=== PATIENT | female | born 1985 | race American Indian/Alaskan Native ===

== ENCOUNTER 2017-03-06 22:24 | Emergency (ER) | payer MEDICAID ==
[2017-03-06 23:36] LABS: Basophils % (Auto) 0.7 % (0.0-1.8); Eosinophils % (Auto) 4.3 % (0.0-4.3); Hematocrit 36.5 % (30.3-42.9); Hemoglobin 11.7 gm/dl (10.1-14.3); Mean Corpuscular HGB Conc 32 % (30-34); Mean Corpuscular Volume 78 fl (79-97); Platelet Count 251 K/mm3 (140-440); Red Blood Count 4.67 M/mm3 (3.65-5.03); White Blood Count 5.5 K/mm3 (4.5-11.0)
--- NOTE | 2017-03-06 23:36 | Emergency Department Report ---
<AL PARTIDA III - Last Filed: 03/06/17 23:36> ED Chest Pain HPI - General Chief Complaint: Chest Pain Stated Complaint: CHEST PAIN Time Seen by Provider: 03/06/17 23:36 Source: patient Mode of arrival: Ambulatory Limitations: No Limitations - History of Present Illness Severity scale (0 -10): 7 - Related Data Previous Rx's Medication Instructions Recorded Last Taken Type Cyclobenzaprine [Flexeril] 10 mg PO TID PRN 10 Days #30 tablet 03/07/17 Unknown Rx Allergies Allergy/AdvReac Type Severity Reaction Status Date / Time banana Allergy Hives Verified 03/12/14 19:33 ED Review of Systems ROS: Stated complaint: CHEST PAIN Other details as noted in HPI ED Past Medical Hx - Past Medical History Hx Hypertension: No Hx Congestive Heart Failure: No Hx Diabetes: No Hx Deep Vein Thrombosis: No Hx GERD: Yes Hx Liver Disease: No Hx Renal Disease: No Hx Sickle Cell Disease: No Hx Seizures: Yes (age 6 fever related none since) Hx Asthma: No Hx COPD: No Hx HIV: No Additional medical history: FEBRILE SEIZURE - Surgical History Past Surgical History?: Yes Additional Surgical History: right eye surgery - Social History Smoking Status: Never Smoker Substance Use Type: None - Medications Home Medications: Home Medications Medication Instructions Recorded Confirmed Last Taken Type Cyclobenzaprine [Flexeril] 10 mg PO TID PRN 10 Days #30 tablet 03/07/17 Unknown Rx ED Physical Exam - General Limitations: No Limitations ED Course Vital Signs 03/06/17 22:30 Temperature 98.1 F Pulse Rate 60 Respiratory 16 Rate Blood Pressure 121/82 O2 Sat by Pulse 100 Oximetry ED Medical Decision Making - Lab Data Result diagrams: 03/06/17 22:59 Critical care attestation.: If time is entered above; I have spent that time in minutes in the direct care of this critically ill patient, excluding procedure time. ED Disposition Clinical Impression: Chest pain, atypical, Costochondritis Disposition: DC- TO HOME OR SELFCARE Condition: Stable Instructions: Chest Pain (ED), Costochondritis (ED) Prescriptions: Cyclobenzaprine [Flexeril] 10 mg PO TID PRN 10 Days #30 tablet PRN Reason: Muscle Spasm Referrals: PRIMARY CARE, [Primary Care Provider] - 3-5 Days (Dr. Wood[place] at [facility] [place] <MATTHEW CHAPMAN - Last Filed: 03/07/17 03:26> ED Chest Pain HPI - General Source: patient Mode of arrival: Ambulatory Limitations: No Limitations - History of Present Illness Initial Comments: Patient with chest pain that has been recurrent for 1-2 weeks but worse for 2 days. She has not had a cough but has no other medical problems. She denies having asthma. She takes no meds. -: Gradual, week(s) (2) Onset: during rest Pain Location: substernal Pain Radiation: none Severity: moderate Severity scale (0 -10): 7 Quality: tightness, sharp Consistency: constant, intermittent (worse with palpation.) Improves With: nothing Worsens With: nothing Treatments Prior to Arrival: none Heart Score - HEART Score History: Slightly suspicious EKG: Non-specific Age: < 45 Risk factors: No known risk factors Troponin: < normal limit HEART Score: 1 ED Review of Systems Constitutional: denies: chills, fever Eyes: denies: eye pain, eye discharge, vision change ENT: denies: ear pain, throat pain Respiratory: denies: cough, shortness of breath, wheezing Cardiovascular: chest pain. denies: palpitations Endocrine: no symptoms reported Gastrointestinal: denies: abdominal pain, nausea, diarrhea Genitourinary: denies: urgency, dysuria, discharge Musculoskeletal: denies: back pain, joint swelling, arthralgia Skin: denies: rash, lesions Neurological: denies: headache, weakness, paresthesias Psychiatric: denies: anxiety, depression Hematological/Lymphatic: denies: easy bleeding, easy bruising ED Physical Exam - General Limitations: No Limitations General appearance: alert, in no apparent distress - Head Head exam: Present: atraumatic, normocephalic - Eye Eye exam: Present: normal appearance - ENT ENT exam: Present: mucous membranes moist - Neck Neck exam: Present: normal inspection - Respiratory Respiratory exam: Present: normal lung sounds bilaterally. Absent: respiratory distress - Cardiovascular Cardiovascular Exam: Present: regular rate, normal rhythm, other (Patient with pain on compression of sternum.). Absent: systolic murmur, diastolic murmur, rubs, gallop - GI/Abdominal GI/Abdominal exam: Present: soft, normal bowel sounds - Extremities Exam Extremities exam: Present: normal inspection - Back Exam Back exam: Present: normal inspection - Neurological Exam Neurological exam: Present: alert, oriented X3 - Psychiatric Psychiatric exam: Present: normal affect, normal mood - Skin Skin exam: Present: warm, dry, intact, normal color. Absent: rash ED Medical Decision Making - Lab Data Result diagrams: 03/06/17 22:59 03/06/17 22:59 Labs were unremarkable. - EKG Data -: EKG Interpreted by Me EKG shows normal: sinus rhythm, axis, intervals, QRS complexes, ST-T waves Rate: normal - EKG Data Interpretation: normal EKG - Medical Decision Making Patient low risk for cardiac disease. Pain is intermittent and on exam is most consistent with costochondritis. Will do flexeril to see if helps. She will need to follow up with her PCP at [facility] [place]. Woodson. ED Disposition Is pt being admited?: No Does the pt Need Aspirin: No Time of Disposition: 03:25
[2017-03-06 23:37] LABS: Mean Corpuscular Hemoglobin 25 pg (28-32)
[2017-03-06 23:43] LABS: Anion Gap 18 mmol/L; BUN/Creatinine Ratio 6; Blood Urea Nitrogen 5 mg/dL (7-17); Calcium 8.5 mg/dL (8.4-10.2); Carbon Dioxide 25 mmol/L (22-30); Chloride 102.1 mmol/L (98-107); Glucose 103 mg/dL (65-100); Potassium 4.2 mmol/L (3.6-5.0); Sodium 141 mmol/L (137-145)
[2017-03-07] MEDS ORDERED: MILK OF MAGNESIA PO ONE (00:35)
[2017-03-07] MEDS ORDERED: LIDOCAINE VISCOUS 2% PO ONE (00:35)
[2017-03-07 03:42] VITALS: BP 122/68
== END 2017-03-07 03:42 | disposition home or self-care (01) ==
LOC: ED 22:24
DX: M94.0 Chondrocostal junction syndrome [Tietze] (principal); R07.89 Other chest pain
CPT/HCPCS: 36415; 80048; 84484; 85025; 93005; 93010

== ENCOUNTER 2019-09-04 20:00 | Inpatient (IN) | payer MEDICARE ==
--- NOTE | 2019-09-04 20:18 | Emergency Department Report ---
HPI - General Time Seen by Provider: 09/04/19 20:01 - HPI HPI: This is a 34-year-old -Malaysian female presents to the emergency department via EMS from home with what appears to be an initial call for chest pain but then ultimately came in through the emergency department as a code stroke. EMS says that the patient was initially talking and unresponsive but became increasingly less responsive during transport. The patient presents into the emergency department with her eyes open spontaneously but she is nonverbal. She appears to follow some commands and withdraws from painful stimuli. The patient has been to this facility previously and she appears to have a past medical history of seizures. There was no seizure-like activity witnessed by EMS. She did not receive anything for symptoms prior to presentation. ED Past Medical Hx - Past Medical History Hx Hypertension: No Hx Congestive Heart Failure: No Hx Diabetes: No Hx Deep Vein Thrombosis: No Hx GERD: Yes Hx Liver Disease: No Hx Renal Disease: No Hx Sickle Cell Disease: No Hx Seizures: Yes (age 6 fever related none since) Hx Asthma: No Hx COPD: No Hx HIV: No Additional medical history: FEBRILE SEIZURE - Surgical History Additional Surgical History: right eye surgery - Social History Smoking Status: Never Smoker Substance Use Type: None - Medications Home Medications: Home Medications Medication Instructions Recorded Confirmed Last Taken Type Cyclobenzaprine [Flexeril] 10 mg PO TID PRN 10 Days #30 tablet 03/07/17 Unknown Rx ED Review of Systems ROS: Stated complaint: CODE STROKE Other details as noted in HPI Comment: Unobtainable due to pts medical conditions Cardiovascular: chest pain Neurological: weakness, confusion Physical Exam - Physical Exam Physical Exam: GENERAL: The patient is well-developed well-nourished. HENT: Normocephalic. Atraumatic. Patient has moist mucous membranes. EYES: Extraocular motions are intact. Pupils equal reactive to light bilaterally. No gaze preference. NECK: Supple. Trachea is midline. CHEST/LUNGS: Clear to auscultation. There is no respiratory distress noted. HEART/CARDIOVASCULAR: Regular. There is no tachycardia. There is no murmur. ABDOMEN: Abdomen is soft, nontender. Patient has normal bowel sounds. There is no abdominal distention. SKIN: Skin is warm and dry. NEURO: Patient is awake but is nonverbal at this time. Withdraws from painful stimuli. There is no upper extremity pronator drift or weakness. There is bilateral lower extremity drift. Cranial nerves II through XII appear intact. MUSCULOSKELETAL: There is no tenderness or deformity. There is no evidence of acute injury. ED Course - Consultations Consultation #1: 09/04/19 21:06 The patient was seen by the telemedicine neurologist, Dr. Valdes, immediately upon the patient's return from CT scan of the head. We discussed the patient's presentation and examination and we agree that there is a very atypical presentation. As Dr Valdes said in his consultation, the patient displays full muscle strength to the bilateral upper extremities and decreased strength to the bilateral lower extremities. At times she is responsive and appropriate, and then the next minute the patient will be either unresponsive or uncooperative. For this reason the patient does not appear to be a TPA candidate and the neurologist recommends admission for further work-up. ED Medical Decision Making - Lab Data Result diagrams: 09/04/19 20:09 09/04/19 20:09 - EKG Data -: EKG Interpreted by [facility] EKG shows normal: sinus rhythm, axis (Left axis deviation), intervals, QRS complexes, ST-T waves (Nonspecific T waves to the anterior lateral leads) Rate: tachycardia (105 bpm) - EKG Data When compared to previous EKG there are: no significant change Interpretation: unchanged when compared t (03/06/17) - Radiology Data Radiology results: report reviewed NONENHANCED CT SCAN OF THE BRAIN: INDICATION: Stroke symptoms. TECHNIQUE: Routine CT head without contrast. Sagittal and coronal reformatted images were obtained. All CT scans at this location are performed using CT dose reduction for ALARA by means of automated exposure control. COMPARISON: None. FINDINGS: BRAIN / INTRACRANIAL CONTENTS: Hemorrhage:No intracranial hemorrhage; no subarachnoid hemorrhage Stroke mimics: No subdural or epidural hematoma or space taking lesion Acute/subacute territorial infarction: Early-white matter interface: No blurring; normal Insular cortex: Normal Basal ganglia: Normal Wedge shaped parenchymal low density area: Not present Cortical sulci: Not effaced Lacunar infarctions: No acute lacunar infarctions Vasculopathy: Dense middle cerebral artery sign: Not present Internal carotid artery terminus: Normal Basilar artery:Normal Middle cerebral artery branches in the sylvian fissure (Dot sign): Normal Calcified embolus: Not present ASPECT score: Not applicable Chronic lesions:None Craniocervical junction:No significant abnorm ality Orbits:No significant abnormality Paranasal sinuses/mastoids:No significant abnormality Additional findings: None IMPRESSION: No hemorrhage or other stroke mimics No acute parenchymal lesion in the brain CTA HEAD WITH CONTRAST HISTORY: Stroke COMPARISON: None. TECHNIQUE: Routine non- contrast CT Head, CTA of the head and post-contrast CT Head are performed. 3- D/MIP reformats postprocessed. All CT scans at this location are performed using CT dose reduction for ALARA by means of automated exposure control CONTRAST: 100 ml of Omnipaque 350 FINDINGS: CTA Head: Intracranial vertebral arteries: No significant abnormality. Basilar artery: No significant abnormality. Posterior cerebral arteries: No significant abnormality. Intracranial internal carotid arteries: No significant abnormality. Anterior cerebral arteries: No significant abnormality. Middle cerebral arteries: No significant abnormality. Dural venous sinuses:Not optimally opacified. No significant abnormality. Additional findings: None. IMPRESSION: 1. No significant abnormality. CTA NECK WITH CONTRAST HISTORY: Stroke COMPARISON: None. TECHNIQUE: Routine CTA of the neck was performed. 3-D/MIP reformats were postprocessed. Percentage stenosis is determined by direct quantitative measurements of diseased internal carotid artery diameter compared with normal distal internal carotid artery reference segments or by criteria similar to NASCET where applicable.All CT scans at this location are performed using CT dose reduction for ALARA by means of automated exposure control CONTRAST: 100 ml of Omnipaque 350 FINDINGS: Aortic arch: No significant abnormality. Cervical vertebral arteries: No significant abnormality. Common carotid arteries: No significant abnormality. Carotid bifurcations: Normal Cervical internal carotid arteries: No significant abnorm ality. Additional findings: None. IMPRESSION: 1. No significant abnormality. - Medical Decision Making This patient initially called EMS for acute chest pain but that had some change in her mental status in route and became nonverbal. Upon presentation to the emergency department the patient has an atypical presentation. She is awake but nonverbal. She has full range of motion and muscle strength to the bilateral upper extremities but appears to have weakness and a drift to the bilateral lower extremities. At some point the patient appears to be following commands and then other times she is not. She does withdraw from painful stimuli. The patient had a stat CT scan of the head without contrast that did not show any acute process. She was seen immediately afterwards by the telemedicine neurologist who gave her an NIH stroke scale of 15 but also agrees that she has a very atypical presentation for a stroke and has no CVA risk factors. For this reason they did not feel that the patient should get TPA but the patient should be admitted for further evaluation and work-up. Her labs have been unremarkable including CBC, metabolic panel, ammonia, troponin, TSH, blood alcohol level, urinalysis and UDS except for marijuana. Patient had a CT angiography of the head and neck that also did not show any occlusion, stenosis, or any other acute process. Vital signs been stable throughout her ED course. The patient will be admitted to the hospital for further evaluation and treatment and was accepted for admission by the hospitalist, Dr. Aldana. Critical Care Time: No Critical care attestation.: If time is entered above; I have spent that time in minutes in the direct care of this critically ill patient, excluding procedure time. ED Disposition Clinical Impression: Acute chest pain, Stroke-like symptoms Altered mental status Qualifiers: Altered mental status type: unspecified Qualified Code(s): R41.82 - Altered mental status, unspecified Disposition: -09 OP ADMIT IP TO THIS HOSP Is pt being admited?: Yes Condition: Serious Time of Disposition: 00:28
[2019-09-04 20:21] LABS: Basophils # (Auto) 0.1 K/mm3 (0.0-0.1); Eosinophils # (Auto) 0.1 K/mm3 (0.0-0.4); Eosinophils % (Auto) 1.2 % (0.0-4.3); Hematocrit 33.8 % (30.3-42.9); Lymphocytes # (Auto) 2.1 K/mm3 (1.2-5.4); Lymphocytes % (Auto) 38.1 % (13.4-35.0); Mean Corpuscular HGB Conc 35 % (30-34); Mean Corpuscular Volume 85 fl (79-97); Monocytes # (Auto) 0.5 K/mm3 (0.0-0.8); Monocytes % (Auto) 9.1 % (0.0-7.3); Platelet Count 287 K/mm3 (140-440); Red Blood Count 4.01 M/mm3 (3.65-5.03); Red Cell Distribution Width 13.4 % (13.2-15.2)
--- NOTE | 2019-09-04 20:29 | Cat Scan Report ---
NONENHANCED CT SCAN OF THE BRAIN: INDICATION: Stroke symptoms. TECHNIQUE: Routine CT head without contrast. Sagittal and coronal reformatted images were obtained. A ll CT scans at this location are performed using CT dose reduction for ALARA by means of automated ex posure control. COMPARISON: None. FINDINGS: BRAIN / INTRACRANIAL CONTENTS: Hemorrhage:No intracranial hemorrhage; no subarachnoid hemorrhage Stroke mimics: No subdural or epidural hematoma or space taking lesion Acute/subacute territorial infarction: Early-white matter interface: No blurring; normal Insular cortex: Normal Basal ganglia: Normal Wedge shaped parenchymal low density area: Not present Cortical sulci: Not effaced Lacunar infarctions: No acute lacunar infarctions Vasculopathy: Dense middle cerebral artery sign: Not present Internal carotid artery terminus: Normal Basilar artery:Normal Middle cerebral artery branches in the sylvian fissure (Dot sign): Normal Calcified embolus: Not present ASPECT score: Not applicable Chronic lesions:None Craniocervical junction:No significant abnormality Orbits:No significant abnormality Paranasal sinuses/mastoids:No significant abnormality Additional findings: None IMPRESSION: No hemorrhage or other stroke mimics No acute parenchymal lesion in the brain Signer Name: Doreen Allen MD Signed: 09/04/2019 8:24 PM Workstation Name: [id number]
[2019-09-04 20:30] LABS: INR 1.01 (0.87-1.13)
[2019-09-04 20:31] LABS: Partial Thromboplastin Time 25.7 Sec. (24.2-36.6); Thrombin Time 15.1 Sec. (15.1-19.6)
--- NOTE | 2019-09-04 20:31 | Consultation ---
Medications and Allergies Allergies Allergy/AdvReac Type Severity Reaction Status Date / Time banana Allergy Hives Verified 03/12/14 19:33 Home Medications Medication Instructions Recorded Confirmed Last Taken Type Cyclobenzaprine [Flexeril] 10 mg PO TID PRN 10 Days #30 tablet 03/07/17 Unknown Rx Physical Examination - Vital Signs Vital Signs: Vital Signs Temp Pulse Resp BP Pulse Ox 97.5 F L 94 H 39 H 139/78 100 09/04/19 20:01 09/04/19 20:01 09/04/19 20:01 09/04/19 20:01 09/04/19 20:01 Results - Laboratory Findings CBC and BMP: 09/04/19 20:09 Abnormal Lab Findings: Abnormal Labs 09/04/19 20:09 MCHC 35 H Lymph % (Auto) 38.1 H [place] % (Auto) 9.1 H Assessment and Plan [facility] [employer] [facility] Date of Service: 09/04/2019 20:02:56 Impression: Rule Out Acute Ischemic Stroke Comments/Sign-Out: Patient presented with atypical presentation with minimally responsive but at times follows commands in regards to chest pain. Non verbal but nods at times appropriately. HCT showed no acute process. Patient presentation is atypical of a neurovascular event. With lack of collateral and inorganic presentation no tpA was offered. Metrics: Last Known Well: Unknown [employer] Notification Time: 09/04/2019 20:02:22 Arrival Time: 09/04/2019 20:00:00 Stamp Time: 09/04/2019 20:02:56 Time First Login Attempt: 09/04/2019 20:07:32 Video Start Time: 09/04/2019 20:07:32 Symptoms: AMS NIHSS Start Assessment Time: 09/04/2019 20:08:00 Patient is not a candidate for tPA. Patient was not deemed candidate for tPA thrombolytics because of Last Well Known Above 4.5 Hours. Video End Time: 09/04/2019 20:24:44 CT head showed no acute hemorrhage or acute core infarct. Clinical Presentation is not Suggestive of Large Vessel Occlusive Disease ED Physician notified of diagnostic impression and management plan on 09/04/2019 20:24:42 Our recommendations are outlined below. Recommendations: Activate Stroke Protocol Admission/Order Set Stroke/Telemetry Floor Neuro Checks Bedside Swallow Eval DVT Prophylaxis IV Fluids, Normal Saline Head of Bed 30 Degrees Euglycemia and Avoid Hyperthermia (PRN Acetaminophen) Antiplatelet Therapy Recommended Routine Consultation with Inhouse Neurology for Follow up Care Sign Out: Discussed with Emergency Department Provider History of Present Illness: Patient is a 34 year old Female. Patient was brought by EMS for symptoms of AMS Patient with unknown history presented with chest pain and AMS. On arrival by EMS she was found minimally responsive. Not interacting to staff. She was given narcan but no change in status. Examination: 1A: Level of Consciousness - Alert; keenly responsive + 0 1B: Ask Month and Age - Could Not Answer Either Question Correctly + 2 1C: Blink Eyes & Squeeze Hands - Performs 0 Tasks + 2 2: Test Horizontal Extraocular Movements - Normal + 0 3: Test Visual Mancera - No Visual Loss + 0 4: Test Facial Palsy (Use Grimace if Obtunded) - Normal symmetry + 0 5A: Test Left Arm Motor Drift - No Drift for 10 Seconds + 0 5B: Test Right Arm Motor Drift - No Drift for 10 Seconds + 0 6A: Test Left Leg Motor Drift - No Effort Against Shasta + 3 6B: Test Right Leg Motor Drift - No Effort Against Shasta + 3 7: Test Limb Ataxia (FNF/Heel-Murray) - No Ataxia + 0 8: Test Sensation - Normal; No sensory loss + 0 9: Test Language/Aphasia - Mute/Global Aphasia: No Usable Speech/Auditory Comprehension + 3 10: Test Dysarthria - Mute/Anarthric + 2 11: Test Extinction/Inattention - No abnormality + 0 NIHSS Score: 15 [facility] [employer] Case [id number]
[2019-09-04] MEDS ORDERED: ASPIRIN 81 MG TAB CHEW PO ONE (20:42)
[2019-09-04 20:43] LABS: Alanine Aminotransferase 8 units/L (7-56); Albumin 3.7 g/dL (3.9-5); BUN/Creatinine Ratio 10; Blood Urea Nitrogen 8 mg/dL (7-17); Calcium 8.7 mg/dL (8.4-10.2); Creatine Kinase MB < 1.0 ng/mL (0.0-4.0); Hemolysis Index 20
[2019-09-04 21:38] LABS: Bacteria,Urine 1+ /HPF (Negative); Bilirubin,Urine NEG (Negative); Blood,Urine NEG (Negative); Color,Urine Yellow (Yellow); Mucus,Urine FEW /HPF
[2019-09-04 21:45] LABS: Amphetamine Screen,Urine PRESUMPTIVE NEGATIVE; Benzodiazepines Screen,Urine PRESUMPTIVE NEGATIVE; Cocaine Screen,Urine PRESUMPTIVE NEGATIVE; Methadone Screen,Urine PRESUMPTIVE NEGATIVE; Opiate Screen,Urine PRESUMPTIVE NEGATIVE
[2019-09-04 22:06] LABS: Cannabinoid Screen,Urine PRESUMPTIVE POSITIVE
[2019-09-04] MEDS ORDERED: KETOROLAC 30 MG/1 ML INJ IV ONE (22:53)
--- NOTE | 2019-09-04 23:47 | Cat Scan Report ---
CTA NECK WITH CONTRAST HISTORY: Stroke COMPARISON: None. TECHNIQUE: Routine CTA of the neck was performed. 3-D/MIP reformats were postprocessed. Percentage s tenosis is determined by direct quantitative measurements of diseased internal carotid artery diamete r compared with normal distal internal carotid artery reference segments or by criteria similar to NA SCET where applicable.All CT scans at this location are performed using CT dose reduction for ALARA b y means of automated exposure control CONTRAST: 100 ml of Omnipaque 350 FINDINGS: Aortic arch: No significant abnormality. Cervical vertebral arteries: No significant abnormality. Common carotid arteries: No significant abnormality. Carotid bifurcations: Normal Cervical internal carotid arteries: No significant abnormality. Additional findings: None. IMPRESSION: 1. No significant abnormality. Signer Name: Doreen Allen MD Signed: 09/04/2019 11:42 PM Workstation Name: [id number]
--- NOTE | 2019-09-04 23:50 | Cat Scan Report ---
CTA HEAD WITH CONTRAST HISTORY: Stroke COMPARISON: None. TECHNIQUE: Routine non-contrast CT Head, CTA of the head and post-contrast CT Head are performed. 3-D /MIP reformats postprocessed. All CT scans at this location are performed using CT dose reduction for ALARA by means of automated exposure control CONTRAST: 100 ml of Omnipaque 350 FINDINGS: CTA Head: Intracranial vertebral arteries: No significant abnormality. Basilar artery: No significant abnormality. Posterior cerebral arteries: No significant abnormality. Intracranial internal carotid arteries: No significant abnormality. Anterior cerebral arteries: No significant abnormality. Middle cerebral arteries: No significant abnormality. Dural venous sinuses:Not optimally opacified. No significant abnormality. Additional findings: None. IMPRESSION: 1. No significant abnormality. Signer Name: Doreen Allen MD Signed: 09/04/2019 11:46 PM Workstation Name: [id number]
[2019-09-05] MEDS ORDERED: NITROGLYCERIN 0.4 MG TAB SUBL SL PRN (00:35)
[2019-09-05] MEDS ORDERED: ACETAMINOPHEN 325 MG TAB PO PRN ×2 (00:35)
[2019-09-05] MEDS ORDERED: PROMETHAZINE 25 MG RECT SUPP PR PRN (00:35)
[2019-09-05] MEDS ORDERED: MORPHINE 2 MG/1 ML INJ IV PRN (00:35)
[2019-09-05] MEDS ORDERED: MAGNESIUM HYDROXIDE (MOM) ORAL LIQD UDC PO PRN ×2 (00:35)
[2019-09-05] MEDS ORDERED: METOCLOPRAMIDE 10 MG TAB PO PRN (00:35)
[2019-09-05] MEDS ORDERED: ONDANSETRON 4 MG/2 ML INJ IV PRN ×2 (00:35)
--- NOTE | 2019-09-05 00:55 | History and Physical Report ---
History of Present Illness Date of examination: 09/05/19 Date of admission: 09/05/2019 Chief complaint: Chest Pain Altered mental status History of present illness: 34-year-old female brought into the emergency room by EMS because of decreased responsiveness at home today. Initial call was that patient was having a chest pain but later became less responsive and upon arrival in the emergency room she was said to be nonverbal but appeared to follow commands and also withdrew from painful stimuli. She is known to have previous history of seizures but no seizure activities were noticed today. Most of the history was gotten from the emergency room physician as patient could not give any good history. Evaluation in the emergency room including CT of the head EKG and labs were unremarkable. She was also evaluated by the teleneurologist recommendation was to have patient worked up for possible CVA. Past History Past Medical History: seizures Past Surgical History: No surgical history Social history: no significant social history Medications and Allergies Allergies Allergy/AdvReac Type Severity Reaction Status Date / Time banana Allergy Hives Verified 03/12/14 19:33 pineapple Allergy Unknown Verified 09/04/19 23:01 turkey Allergy Unknown Verified 09/04/19 23:01 Home Medications Medication Instructions Recorded Confirmed Last Taken Type Ibuprofen [Motrin 800 MG tab] 800 mg PO TID 09/05/19 09/05/19 Unknown History Meloxicam [Mobic] 15 mg PO QDAY 09/05/19 09/05/19 Unknown History Montelukast Sodium 5 mg PO QHS 09/05/19 09/05/19 Unknown History tiZANidine 4 mg PO QDAY 09/05/19 09/05/19 Unknown History Review of Systems ROS unobtainable: due to mental status Exam - Constitutional Vitals: Temp Pulse Resp BP Pulse Ox 97.5 F L 72 13 122/72 94 09/04/19 20:01 09/05/19 00:00 09/05/19 00:00 09/05/19 00:00 09/05/19 00:00 General appearance: Present: no acute distress, well-nourished - EENT Eyes: Present: PERRL, EOM intact. Absent: scleral icterus ENT: hearing intact, clear oral mucosa, dentition normal - Neck Neck: Present: supple, normal ROM - Respiratory Respiratory effort: normal Respiratory: bilateral: CTA - Cardiovascular Rhythm: regular Heart Sounds: Present: S1 & S2. Absent: gallop, systolic murmur, diastolic murmur, rub - Extremities Extremities: no ischemia, pulses intact, pulses symmetrical, No edema, Full ROM Peripheral Pulses: within normal limits - Abdominal General gastrointestinal: Present: soft, non-tender, non-distended, normal bowel sounds - Integumentary Integumentary: Present: clear, warm, dry. Absent: jaundice, rash - Musculoskeletal Musculoskeletal: strength equal bilaterally - Psychiatric Psychiatric: cooperative - Neurologic Neurologic: CNII-XII intact, moves all extremities - Additional findings Additional findings: Unresponsive to verbal commands HEART Score - HEART Score Troponin: Troponin T < 0.010 ng/mL (0.00-0.029) 09/04/19 20:09 Results - Labs CBC & Chem 7: 09/05/19 01:05 09/05/19 01:05 Labs: Abnormal lab results 09/04/19 09/04/19 09/04/19 Range/Units 20:09 20:09 20:26 MCHC 35 H (30-34) % Lymph % (Auto) 38.1 H (13.4-35.0) % [place] % (Auto) 9.1 H (0.0-7.3) % Carbon Dioxide 20 L (22-30) mmol/L Glucose 141 H (65-100) mg/dL POC Glucose 151 H (70-105) Albumin 3.7 L (3.9-5) g/dL Assessment and Plan - Patient Problems (1) Altered mental status Current Visit: Yes Status: Acute Qualifiers: Altered mental status type: unspecified Qualified Code(s): R41.82 - Altered mental status, unspecified Plan to address problem: Etiology is unclear however patient has known history of seizures. No seizure- like activities noticed today. He has also been evaluated by the teleneurologist with a recommendation to work-up for possible CVA. Patient will be scheduled for MRI of the brain, carotid Doppler. Will monitor mental status. We will also schedule patient for EEG in view of her history of seizures. (2) Acute chest pain Current Visit: Yes Status: Acute Plan to address problem: Work-up so far has been negative. Doubt cardiac origin. Will check serial cardiac enzymes. Will monitor EKG. Patient placed on daily aspirin, sublingual nitroglycerin and IV morphine as needed for chest pain. (3) DVT prophylaxis Current Visit: Yes Status: Acute Plan to address problem: Patient placed on subcutaneous Lovenox. (4) Full code status Current Visit: Yes Status: Acute
[2019-09-05 01:44] LABS: Basophils % (Auto) 0.1 % (0.0-1.8); Eosinophils % (Auto) 0.9 % (0.0-4.3); Hemoglobin 11.3 gm/dl (10.1-14.3); Lymphocytes # (Auto) 1.3 K/mm3 (1.2-5.4); Lymphocytes % (Auto) 29.4 % (13.4-35.0); Mean Corpuscular HGB Conc 33 % (30-34); Mean Corpuscular Volume 84 fl (79-97); Monocytes # (Auto) 0.4 K/mm3 (0.0-0.8); Monocytes % (Auto) 8.2 % (0.0-7.3); Platelet Count 289 K/mm3 (140-440); Red Blood Count 4.05 M/mm3 (3.65-5.03); Red Cell Distribution Width 13.3 % (13.2-15.2)
[2019-09-05 02:02] LABS: BUN/Creatinine Ratio 9; Blood Urea Nitrogen 6 mg/dL (7-17); Calcium 8.4 mg/dL (8.4-10.2); Hemolysis Index 5
[2019-09-05] MEDS ORDERED: ASPIRIN 325 MG TAB PO SCH (10:00)
--- NOTE | 2019-09-05 10:31 | Progress Note ---
Assessment and Plan Assessment and plan: Acute encephalopathy. Etiology is unclear however patient has known history of seizures. No seizure-like activities noted prior to admission. CTA head and neck negative. History of seizures. Patient reports history of seizure associated with fever years ago. She denies seizure disorder requiring medications. Follow-up EEG. Chest pain. Likely noncardiac. Follow-up cardiac isoenzymes and EKG. Monitor on telemetry. Follow-up echocardiogram. Patient denies chest pain currently. History Interval history: No new issues overnight. Hospitalist Physical - Constitutional Vitals: Temp Pulse Resp BP Pulse Ox 98.0 F 106 H 18 102/66 100 09/05/19 08:15 09/05/19 08:15 09/05/19 08:15 09/05/19 08:15 09/05/19 08:15 General appearance: Present: no acute distress, well-nourished - EENT Eyes: Present: PERRL, EOM intact ENT: hearing intact, clear oral mucosa, dentition normal - Neck Neck: Present: supple, normal ROM - Respiratory Respiratory effort: normal Respiratory: bilateral: CTA - Cardiovascular Rhythm: regular Heart Sounds: Present: S1 & S2. Absent: gallop, rub - Extremities Extremities: no ischemia, No edema, Full ROM - Abdominal General gastrointestinal: soft, non-tender, non-distended, normal bowel sounds - Integumentary Integumentary: Present: clear, warm, dry - Neurologic Neurologic: CNII-XII intact, moves all extremities HEART Score - HEART Score Troponin: Troponin T < 0.010 ng/mL (0.00-0.029) 09/05/19 07:19 Results - Labs CBC & Chem 7: 09/05/19 01:05 09/05/19 01:05 Labs: Laboratory Last Values WBC 4.5 K/mm3 (4.5-11.0) 09/05/19 01:05 RBC 4.05 M/mm3 (3.65-5.03) 09/05/19 01:05 Hgb 11.3 gm/dl (10.1-14.3) 09/05/19 01:05 Hct 34.0 % (30.3-42.9) 09/05/19 01:05 MCV 84 fl (79-97) 09/05/19 01:05 MCH 28 pg (28-32) 09/05/19 01:05 MCHC 33 % (30-34) 09/05/19 01:05 RDW 13.3 % (13.2-15.2) 09/05/19 01:05 Plt Count 289 K/mm3 (140-440) 09/05/19 01:05 Lymph % (Auto) 29.4 % (13.4-35.0) 09/05/19 01:05 [place] % (Auto) 8.2 % (0.0-7.3) H 09/05/19 01:05 Eos % (Auto) 0.9 % (0.0-4.3) 09/05/19 01:05 Baso % (Auto) 0.1 % (0.0-1.8) 09/05/19 01:05 Lymph # 1.3 K/mm3 (1.2-5.4) 09/05/19 01:05 [place] # 0.4 K/mm3 (0.0-0.8) 09/05/19 01:05 Eos # 0.0 K/mm3 (0.0-0.4) 09/05/19 01:05 Baso # 0.0 K/mm3 (0.0-0.1) 09/05/19 01:05 Seg Neutrophils % 61.4 % (40.0-70.0) 09/05/19 01:05 Seg Neutrophils # 2.7 K/mm3 (1.8-7.7) 09/05/19 01:05 PT 13.1 Sec. (12.2-14.9) 09/04/19 20:09 INR 1.01 (0.87-1.13) 09/04/19 20:09 APTT 25.7 Sec. (24.2-36.6) 09/04/19 20:09 Thrombin Time 15.1 Sec. (15.1-19.6) 09/04/19 20:09 Sodium 138 mmol/L (137-145) 09/05/19 01:05 Potassium 4.3 mmol/L (3.6-5.0) 09/05/19 01:05 Chloride 105.5 mmol/L (98-107) 09/05/19 01:05 Carbon Dioxide 23 mmol/L (22-30) 09/05/19 01:05 Anion Gap 14 mmol/L 09/05/19 01:05 BUN 6 mg/dL (7-17) L 09/05/19 01:05 Creatinine 0.7 mg/dL (0.7-1.2) 09/05/19 01:05 Estimated GFR > 60 ml/min 09/05/19 01:05 BUN/Creatinine Ratio 9 % 09/05/19 01:05 Glucose 111 mg/dL (65-100) H 09/05/19 01:05 POC Glucose 151 (70-105) H 09/04/19 20:26 Calcium 8.4 mg/dL (8.4-10.2) 09/05/19 01:05 Total Bilirubin < 0.20 mg/dL (0.1-1.2) 09/04/19 20:09 AST 16 units/L (5-40) 09/04/19 20:09 ALT 8 units/L (7-56) 09/04/19 20:09 Alkaline Phosphatase 70 units/L (35-129) 09/04/19 20:09 Ammonia 34.0 umol/L (25-60) 09/04/19 20:09 Total Creatine Kinase 62 units/L (30-135) 09/04/19 20:09 CK-MB (CK-2) < 1.0 ng/mL (0.0-4.0) 09/04/19 20:09 CK-MB (CK-2) Rel Index 1.6 (0-4) 09/04/19 20:09 Troponin T < 0.010 ng/mL (0.00-0.029) 09/05/19 07:19 Total Protein 6.7 g/dL (6.3-8.2) 09/04/19 20:09 Albumin 3.7 g/dL (3.9-5) L 09/04/19 20:09 Albumin/Globulin Ratio 1.2 % 09/04/19 20:09 TSH 0.749 mlU/mL (0.270-4.200) 09/04/19 20:09 HCG, Qual Negative (Negative) 09/04/19 20:09 Urine Color Yellow (Yellow) 09/04/19 21:26 Urine Turbidity Clear (Clear) 09/04/19 21: Urine pH 7.0 (5.0-7.0) 09/04/19 21:26 Ur Specific [place] 1.020 (1.003-1.030) 09/04/19 21: Urine Protein 30 mg/dl mg/dL (Negative) 09/04/19 21: Urine Glucose (UA) Neg mg/dL (Negative) 09/04/19 21: Urine Ketones Neg mg/dL (Negative) 09/04/19 21: Urine Blood Neg (Negative) 09/04/19 21: Urine Nitrite Neg (Negative) 09/04/19 21: Urine Bilirubin Neg (Negative) 09/04/19 21:26 Urine Urobilinogen 4.0 mg/dL (<2.0) 09/04/19 21: Ur Leukocyte Esterase Neg (Negative) 09/04/19 21: Urine WBC (Auto) 1.0 /HPF (0.0-6.0) 09/04/19 21: Urine RBC (Auto) 3.0 /HPF (0.0-6.0) 09/04/19 21: U Epithel Cells (Auto) < 1.0 /HPF (0-13.0) 09/04/19 21: Urine Bacteria (Auto) 1+ /HPF (Negative) 09/04/19 21: Urine Mucus Few /HPF 09/04/19 21:26 Urine Opiates Screen Presumptive negative 09/04/19 21:26 Urine Methadone Screen Presumptive negative 09/04/19 21:26 Ur Barbiturates Screen Presumptive negative 09/04/19 21:26 Ur Phencyclidine Scrn Presumptive negative 09/04/19 21: Ur Amphetamines Screen Presumptive negative 09/04/19 21:26 U Benzodiazepines Scrn Presumptive negative 09/04/19 21:26 Urine Cocaine Screen Presumptive negative 09/04/19 21:26 U Marijuana (THC) Screen Presumptive positive 09/04/19 21:26 Drugs of Abuse Note Disclamer 09/04/19 21: Plasma/Serum Alcohol < 0.01 % (0-0.07) 09/04/19 20:09 Turner/IV: Voiding Method Toilet IV Catheter Type [Left INT / Saline Lock Antecubital] Active Medications - Current Medications Current Medications: Generic Name Dose Route Start Last Admin Trade Name Freq PRN Reason Stop Dose Admin Acetaminophen 650 mg 09/05/19 00:35 Tylenol PO Q4H PRN Pain MILD(1-3)/Fever >100.5/COVARRUBIAS Aspirin 325 mg 09/06/19 10:00 Ecotrin PO QDAY JUAN ANTONIO Bisacodyl 10 mg 09/05/19 00:35 Dulcolax DE QDAY PRN Constipation Enoxaparin Sodium 40 mg 09/05/19 22:00 Enoxaparin SUB-Q QDAY@2200 [facility] Sodium Chloride 1,000 mls @ 75 mls/hr 09/05/19 00:45 Nacl 0.9% 1000 Ml IV DIRECT JUAN ANTONIO Magnesium Hydroxide 30 ml 09/05/19 00:35 Milk Of Magnesia PO Q4H PRN Constipation Metoclopramide HCl 10 mg 09/05/19 00:35 Reglan PO Q6H PRN Nausea And Vomiting Morphine Sulfate 2 mg 09/05/19 00:35 Morphine IV Q5MIN PRN Chest Pain unrelieved by NTG Nitroglycerin 0.4 mg 09/05/19 00:35 Nitrostat SL Q5M PRN Chest Pain Ondansetron HCl 4 mg 09/05/19 00:35 Zofran IV Q8H PRN Nausea And Vomiting Promethazine HCl 25 mg 09/05/19 00:35 Phenergan DE Q6H PRN Nausea And Vomiting Sodium Chloride 10 ml 09/05/19 10:00 09/05/19 09:46 Sodium Chloride Flush Syringe 10 Ml IV 10 ml BID JUAN ANTONIO Administration Sodium Chloride 10 ml 09/05/19 00:35 Sodium Chloride Flush Syringe 10 Ml IV PRN PRN LINE FLUSH Nutrition/Malnutrition Assess - Dietary Evaluation Nutrition/Malnutrition Findings: Nutrition Notes Start: 09/05/19 09:09 Freq: Status: Active Protocol: Document 09/05/19 09:09 LM (Rec: 09/05/19 09:11 LM [id number]) Nutrition Notes Need for Assessment generated from: MD Order Initial or Follow up Brief Note Other Pertinent Diagnosis AMS, chest pain, suspected CVA Current Diet NPO Subjective/Other Information MD consut for diet education. Unable to reach pt. Pt with banana, pineapple, and turkey allergy. Food Allergy Yes Nutrition Intervention Follow-Up By: 09/08/19 Additional Comments F/U for diet education
--- NOTE | 2019-09-05 11:08 | Magnetic Resonance Report ---
NONENHANCED MR SCAN OF THE BRAIN: INDICATION / CLINICAL INFORMATION: . Left-sided weakness; syncope TECHNIQUE: Multiplanar, multisequence MR images of the brain obtained. COMPARISON: CT scan of the head from 09/04/2019 FINDINGS: BRAIN / INTRACRANIAL CONTENTS: No acute ischemia, acute hemorrhage, mass effect, midline shift, or hy drocephalus. No chronic infarct or atrophy. No significant white matter abnormality. CRANIOCERVICAL JUNCTION: No significant abnormality. VASCULAR FLOW-VOIDS: No significant abnormality. ORBITS: No significant abnormality of visualized orbits. SINUSES / MASTOIDS: No significant abnormality of visualized sinuses and mastoid air cells. ADDITIONAL FINDINGS: None. IMPRESSION: Normal MR scan of the brain. Signer Name: Doreen Allen MD Signed: 09/05/2019 11:04 AM Workstation Name: [id number]
[2019-09-05] MEDS: SODIUM CHLORIDE 0.9% 1000 ML 1,000 ML IV SCH ×2 (14:52→22:15)
[2019-09-05] MEDS ORDERED: ENOXAPARIN 40 MG/0.4 ML INJ SUB-Q SCH (22:00)
[2019-09-05] MEDS ORDERED: diphenhydrAMINE 50 MG/ML VIAL IV ONE (22:52)
[2019-09-06 00:17] VITALS: BP 109/62
[2019-09-06 05:59] LABS: Basophils % (Auto) 0.1 % (0.0-1.8); Eosinophils # (Auto) 0.1 K/mm3 (0.0-0.4); Hematocrit 32.6 % (30.3-42.9); Lymphocytes # (Auto) 1.7 K/mm3 (1.2-5.4); Lymphocytes % (Auto) 35.2 % (13.4-35.0); Mean Corpuscular HGB Conc 34 % (30-34); Mean Corpuscular Volume 83 fl (79-97); Monocytes # (Auto) 0.3 K/mm3 (0.0-0.8); Monocytes % (Auto) 6.4 % (0.0-7.3); Platelet Count 244 K/mm3 (140-440); Red Blood Count 3.92 M/mm3 (3.65-5.03); Red Cell Distribution Width 13.4 % (13.2-15.2)
[2019-09-06 06:11] LABS: INR 1.12 (0.87-1.13)
[2019-09-06] MEDS: ASPIRIN EC 325 MG TAB PO SCH ×2 (08:33→11:14)
[2019-09-06 08:50] LABS: BUN/Creatinine Ratio 7; Blood Urea Nitrogen 5 mg/dL (7-17); Calcium 7.8 mg/dL (8.4-10.2); HDL Cholesterol 59 mg/dL (40-59); Hemolysis Index 2; LDL Cholesterol,Direct 61 mg/dL (50-130)
--- NOTE | 2019-09-06 09:05 | Discharge Summary ---
Providers - Providers Date of Admission: 09/05/19 00:28 Date of discharge: 09/06/19 Attending physician: HELIO GONZALES 09/05/19 Consult to Physician [CONS] Routine Comment: Consulting Provider: SURESH BIRMINGHAM Physician Instructions: Reason For Exam: ALTERED MENTAL STATUS R/O CVA 09/05/19 00:37 Consult to Dietitian/Nutrition [CONS] Routine Physician Instructions: Reason For Exam: Reason for Consult: Nutrition Recommendations Reason for Consult: Diet education Occupational Therapy Evaluate and Treat [CONS] Routine Comment: Reason For Exam: Neuro deficits Physical Therapy Evaluation and Treat [CONS] Routine Comment: Reason For Exam: Neuro deficits Primary care physician: TICK INSPECTOR Hospitalization Reason for admission: AMS Condition: Serious Hospital course: 34-year-old female brought into the emergency room by EMS because of decreased responsiveness at home prior to admission. On arrival to the emergency room, patient reportedly was noted to be nonverbal but appeared to follow commands and also withdrew from painful stimuli. She is known to have previous history of s eizures but no seizure activity was documented prior to admission. The patient was admitted with diagnosis of acute encephalopathy.? Post ictal episode. The patient denied chest pain or shortness of breath to me. Patient had no lateralizing signs of symptoms to suggest CVA. CTA of the head and neck as well as MRI of the brain were negative. Echocardiogram was completed and can be followed up as an outpatient. Patient had no seizure activity throughout the hospital stay. Patient also can have EEG done as an outpatient. The patient will be discharged with Keppra 500 twice daily for prophylaxis. Patient is back to her baseline and wants to go home. Dedicated discharge time 35 minutes. Disposition: DC-01 TO HOME OR SELFCARE Time spent for discharge: 35 Core Measure Documentation - Palliative Care Palliative Care/ Comfort Measures: Not Applicable - Core Measures Any of the following diagnoses?: none Exam - Constitutional Vitals: Temp Pulse Resp BP Pulse Ox 97.8 F 61 18 109/62 97 09/05/19 23:40 09/06/19 05:00 09/05/19 23:40 09/05/19 23:40 09/06/19 07:59 General appearance: Present: no acute distress, well-nourished - EENT Eyes: Present: PERRL ENT: hearing intact, clear oral mucosa - Neck Neck: Present: supple, normal ROM - Respiratory Respiratory effort: normal Respiratory: bilateral: CTA - Cardiovascular Heart Sounds: Present: S1 & S2. Absent: rub, click - Extremities Extremities: pulses symmetrical, No edema Peripheral Pulses: within normal limits - Abdominal General gastrointestinal: Present: soft, non-tender, non-distended, normal bowel sounds Female genitourinary: Present: normal - Integumentary Integumentary: Present: clear, warm, dry - Musculoskeletal Musculoskeletal: gait normal, strength equal bilaterally - Psychiatric Psychiatric: appropriate mood/affect, intact judgment & insight - Neurologic Neurologic: CNII-XII intact, moves all extremities Plan Activity: advance as tolerated Weight Bearing Status: Weight Bear as Tolerated Diet: regular Follow up with: PRIMARY CAREMD [Primary Care Provider] - 3-5 Days KAMAR MAZARIEGOS MD [Staff Physician] - 7 Days
== END 2019-09-06 12:48 | disposition home or self-care (01) | DRG 72 ==
LOC: ED 20:00 → 4A 09-05 00:28
PROVIDERS: ADMIT Internal Medicine Geriatric Medicine; ATTEND Hospitalist
DX: G93.40 Encephalopathy, unspecified (principal); R07.9 Chest pain, unspecified; K21.9 Gastro-esophageal reflux disease without esophagitis; Z79.899 Other long term (current) drug therapy
CPT/HCPCS: 36415; 70450; 70496; 70498; 70551; 80048; 80053; 80061; 80307; 80320; 81001; 82140; 82550; 82553; 82962; 84443; 84484; 84703; 85025; 85610; 85670; 85730; 93005; 93306; G0378; G0480; J1200; J1650; J1885; J2270; J7030; Q9967

== ENCOUNTER 2020-01-11 13:13 | Emergency (ER) | payer MEDICARE ==
[2020-01-11] MEDS ORDERED: methylPREDNISolone Sod Succinate 125 MG/2 ML INJ IM ONE (16:06)
--- NOTE | 2020-01-11 16:06 | Emergency Department Report ---
ED General Adult HPI - General Chief complaint: Skin Rash Stated complaint: ALLERGIC REACTION Time Seen by Provider: 01/11/20 15:44 Source: patient Mode of arrival: Wheelchair Limitations: No Limitations - History of Present Illness Initial comments: Patient is a 34-year-old female with no significant past medical history. Patient presented to the ER complaining of upper body skin rash. Patient stated that symptoms has been going on for 3 months. Patient stated that she saw neurology DrMei Last weekend she was prescribed a medication but is not helping. Patient is complaining of significant pruritus and itching. Patient denies any shortness of breath or wheezing. No fever or chills. - Related Data Home Medications Medication Instructions Recorded Confirmed Last Taken Ibuprofen [Motrin 800 MG tab] 800 mg PO TID 09/05/19 09/05/19 Unknown Meloxicam [Mobic] 15 mg PO QDAY 09/05/19 09/05/19 Unknown Montelukast Sodium 5 mg PO QHS 09/05/19 09/05/19 Unknown tiZANidine 4 mg PO QDAY 09/05/19 09/05/19 Unknown Previous Rx's Medication Instructions Recorded Last Taken Type levETIRAcetam [Keppra TAB] 500 mg PO BID #60 tablet 09/06/19 Unknown Rx Allergies Allergy/AdvReac Type Severity Reaction Status Date / Time banana Allergy Hives Verified 03/12/14 19:33 pineapple Allergy Unknown Verified 09/04/19 23:01 turkey Allergy Unknown Verified 09/04/19 23:01 ED Review of Systems ROS: Stated complaint: ALLERGIC REACTION Other details as noted in HPI Comment: All other systems reviewed and negative Constitutional: denies: chills, fever Respiratory: denies: cough, shortness of breath, SOB with exertion Cardiovascular: denies: chest pain, palpitations Gastrointestinal: denies: abdominal pain, nausea, vomiting, diarrhea, constipation, hematemesis, melena, hematochezia Musculoskeletal: denies: back pain Skin: rash, pruritus Neurological: denies: headache, weakness, numbness, paresthesias, confusion, abnormal gait ED Past Medical Hx - Past Medical History Previous Medical History?: Yes Hx Hypertension: No Hx Congestive Heart Failure: No Hx Diabetes: No Hx Deep Vein Thrombosis: No Hx GERD: Yes Hx Liver Disease: No Hx Renal Disease: No Hx Sickle Cell Disease: No Hx Seizures: Yes (age 6 fever related none since) Hx Asthma: No Hx COPD: No Hx HIV: No Additional medical history: FEBRILE SEIZURE - Surgical History Past Surgical History?: Yes Additional Surgical History: right eye surgery - Social History Smoking Status: Never Smoker - Medications Home Medications: Home Medications Medication Instructions Recorded Confirmed Last Taken Type Ibuprofen [Motrin 800 MG tab] 800 mg PO TID 09/05/19 09/05/19 Unknown History Meloxicam [Mobic] 15 mg PO QDAY 09/05/19 09/05/19 Unknown History Montelukast Sodium 5 mg PO QHS 09/05/19 09/05/19 Unknown History tiZANidine 4 mg PO QDAY 09/05/19 09/05/19 Unknown History levETIRAcetam [Keppra TAB] 500 mg PO BID #60 tablet 09/06/19 Unknown Rx ED Physical Exam - General Limitations: No Limitations General appearance: alert, in no apparent distress - Head Head exam: Present: atraumatic, normocephalic, normal inspection - Eye Eye exam: Present: normal appearance, PERRL - ENT ENT exam: Present: normal exam, normal orophraynx, mucous membranes moist - Neck Neck exam: Present: normal inspection, full ROM. Absent: tenderness, meningismus, lymphadenopathy, thyromegaly - Respiratory Respiratory exam: Present: normal lung sounds bilaterally - Cardiovascular Cardiovascular Exam: Present: regular rate, normal rhythm, normal heart sounds - GI/Abdominal GI/Abdominal exam: Present: soft, normal bowel sounds. Absent: distended, tenderness, guarding, rebound, rigid, mass, bruit, pulsatile mass, hernia - Extremities Exam Extremities exam: Present: normal inspection, full ROM, normal capillary refill. Absent: tenderness, pedal edema, calf tenderness - Back Exam Back exam: Present: normal inspection, full ROM. Absent: CVA tenderness (R), CVA tenderness (L) - Neurological Exam Neurological exam: Present: alert, oriented X3, CN II-XII intact, normal gait, reflexes normal. Absent: motor sensory deficit - Psychiatric Psychiatric exam: Present: normal mood - Skin Skin exam: Present: warm, intact, rash, urticaria ED Medical Decision Making - Medical Decision Making Patient is a 34-year-old female with no significant past medical history. Patient presented to the ER complaining of upper body skin rash. Patient stated that symptoms has been going on for 3 months. Patient stated that she saw neurology DrMei Last weekend she was prescribed a medication but is not helping. Patient is complaining of significant pruritus and itching. Patient denies any shortness of breath or wheezing. No fever or chills. Patient received Solu-Medrol and Vistaril injection in the emergency room. Patient also given prescription for prednisone, Pepcid and Benadryl and advised to follow-up with her allergy doctor in the next 2 to 3 days for further management. Critical care attestation.: If time is entered above; I have spent that time in minutes in the direct care of this critically ill patient, excluding procedure time. ED Disposition Clinical Impression: Allergic reaction Disposition: DC-01 TO HOME OR SELFCARE Is pt being admited?: No Condition: Stable Instructions: Food Allergy (ED) Referrals: PRIMARY CARE, [Referring] - 3-5 Days
[2020-01-11] MEDS ORDERED: hydrOXYzine HCL 100 MG/2 ML INJ IM SCH (16:30)
== END 2020-01-11 17:38 | disposition home or self-care (01) ==
LOC: ED 13:13
DX: T78.49XA Other allergy, initial encounter (principal); X58.XXXA Exposure to other specified factors, initial encounter
CPT/HCPCS: 96372; 99282; J2930; J3410

== ENCOUNTER 2020-08-27 22:43 | Emergency (ER) | payer MEDICARE ==
[2020-08-27] MEDS ORDERED: levETIRAcetam 1000 MG/NS 0.75% 1,000 MG/100 ML BAG IV ONE (22:54)
--- NOTE | 2020-08-27 22:56 | Emergency Department Report ---
ED General Adult HPI - General Chief complaint: Seizure Stated complaint: SEIZURE PUI?: No Time Seen by Provider: 08/27/20 22:53 Source: EMS (Verbal report received from emergency medical services. EMS documentation not available at time of chart dictation ), RN notes reviewed, old records reviewed Mode of arrival: Ambulatory Limitations: Altered Mental Status - History of Present Illness Initial comments: The patient was evaluated in the emergency department for symptoms described in the history of present illness. He/she was evaluated in the context of the global COVID-19 pandemic, which necessitated consideration that the patient might be at risk for infection with the virus that causes COVID-19. Institutional protocols and algorithms that pertain to the evaluation of patients at risk for COVID-19 are in a state of rapid change based on information released by regulatory bodies including the CDC and federal and state organizations. These policies and algorithms were followed during the patient's care in the emergency department. Please note that these policies, procedures and recommendations changed on a rapid basis. During the history and physical examination, I am chaperoned by nurse Zenaida Morales The patient is a 35-year-old female. She has a history of body mass index of 44, and was admitted to this hospital last year for decreased responsiveness. She had a CTA head and neck which was negative for acute findings, an MRI which was negative for acute findings, an echocardiogram that was unremarkable. She had no seizure activity throughout her hospital stay, it was recommended that she take Keppra 500 mg twice daily, and have an EEG done as an outpatient. Today, the patient is brought to the hospital by emergency medical services as a possible seizure. EMS reports that they were called because the patient was shaking in bed. Currently, the patient is awake, but not verbal, and follows some, but not all commands. EMS reports the patient was given Ativan in the field, and her events/shaking stopped. They then contacted medical control for additional orders for Versed, and then subsequently informed the patient that if she continued to have convulsions/shaking in the ambulance, which she did, she would likely require additional benzodiazepines, and thus require intubation. EMS tells me that the patient stated in the field "I want that." Her convulsive activity then stopped. They also report that the patient had a normal Accu-Chek in the field. In the emergency room, the patient is awake, breathing spontaneously. She blinks in response to threat, and is shaking her head back and forth, and twitching her upper extremities. She withdraws to painful stimuli. Her refl exes are intact. The patient will not answer my questions at this time. The patient does not describe the qualitative nature of her symptoms, exacerbating factors, relieving factors, or aggravating factors. The patient is not accompanied by friends or family at this time for additional information or collateral information. -: This evening Radiation: other Quality: other Consistency: other Improves with: other Worsens with: other Associated Symptoms: other Treatments Prior to Arrival: other - Related Data Home Medications Medication Instructions Recorded Confirmed Last Taken Montelukast Sodium 5 mg PO QHS 09/05/19 09/05/19 Unknown Previous Rx's Medication Instructions Recorded Last Taken Type levETIRAcetam [Keppra TAB] 500 mg PO BID #60 tablet 08/28/20 Unknown Rx Allergies Allergy/AdvReac Type Severity Reaction Status Date / Time banana Allergy Hives Verified 03/12/14 19:33 pineapple Allergy Unknown Verified 09/04/19 23:01 turkey Allergy Unknown Verified 09/04/19 23:01 ED Review of Systems ROS: Stated complaint: SEIZURE Other details as noted in HPI Comment: Unobtainable due to pts medical conditions ED Past Medical Hx - Past Medical History Hx Hypertension: No Hx Congestive Heart Failure: No Hx Diabetes: No Hx Deep Vein Thrombosis: No Hx GERD: Yes Hx Liver Disease: No Hx Renal Disease: No Hx Sickle Cell Disease: No Hx Seizures: Yes (age 6 fever related none since) Hx Asthma: No Hx COPD: No Hx HIV: No Additional medical history: FEBRILE SEIZURE - Surgical History Additional Surgical History: right eye surgery - Social History Smoking Status: Unknown if ever smoked - Medications Home Medications: Home Medications Medication Instructions Recorded Confirmed Last Taken Type Montelukast Sodium 5 mg PO QHS 09/05/19 09/05/19 Unknown History levETIRAcetam [Keppra TAB] 500 mg PO BID #60 tablet 08/28/20 Unknown Rx ED Physical Exam - General Limitations: Other (The patient is awake. The patient is shaking her head back and forth. The patient will not answer my questions.) General appearance: anxious, obese - Head Head exam: Present: atraumatic, normocephalic - Eye Eye exam: Present: normal appearance, PERRL, EOMI - ENT ENT exam: Present: normal exam, normal orophraynx, mucous membranes moist, normal external ear exam - Neck Neck exam: Present: normal inspection, full ROM. Absent: tenderness, meningismus - Respiratory Respiratory exam: Present: normal lung sounds bilaterally. Absent: respiratory distress, wheezes, rales, rhonchi, stridor, decreased breath sounds - Cardiovascular Cardiovascular Exam: Present: regular rate, normal rhythm, normal heart sounds. Absent: bradycardia, tachycardia, irregular rhythm, systolic murmur, diastolic murmur, rubs, gallop - GI/Abdominal GI/Abdominal exam: Present: soft. Absent: distended, tenderness, guarding, rebound, rigid, pulsatile mass - Extremities Exam Extremities exam: Present: normal inspection, full ROM, other (2+ pulses noted in the bilateral upper and lower extremities. There is no palpable cord. negative Homans sign. Muscular compartments are soft. The pelvis is stable.). Absent: pedal edema, calf tenderness - Back Exam Back exam: Present: normal inspection. Absent: tenderness, CVA tenderness (R), CVA tenderness (L), paraspinal tenderness, vertebral tenderness - Neurological Exam Neurological exam: Present: reflexes normal, other (The patient is awake. The patient is shaking her head back and forth. The patient withdraws 4 extremities in response to painful stimuli.) - Skin Skin exam: Present: warm, dry, intact, normal color. 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 When I examined the patient's eyes, they initially open and then she closes them tightly. Reflexes are intact, and she moves 4 extremities to painful stimuli. She is awake and breathing spontaneously. There is no history of trauma. Vital signs acceptable. EKG unchanged from prior. Patient had a similar presentation on a prior admission in 2019. She will be loaded with Keppra. We will check appropriate laboratory studies, and noncontrast CT scan of the brain. Reassess after initial data points. 08/28/20 00:55 Laboratory studies unremarkable. Noncontrast CT scan of the brain negative for acute findings. EKG unchanged from prior. When I went back to reevaluate the patient, she was awake, and still moving her head back and forth, and still flapping her hands. The patient is likely having a conversion disorder/pseudoseizure. I again attempted to interview and discussed findings with patient. She would not talk to me. As I suspect that the patient is having a conversion disorder, ammonia inhalant was administered, and she immediately stopped her shaking. She is able to tell me her name and that she lives with her mother. She denies physical pain, with exception of left leg ache, which is nontraumatic, and has an unremarkable physical examination. She denies Covid symptoms and denies the possibility of being . Her nonspecific shaking has terminated. Patient was counseled to not drive or operate motor vehicles for 6 months, counseled to take Keppra prescription, and counseled to follow-up with an outpatient primary care doctor, and/or neurologist. During this encounter, I was chaperoned by nurse Zenaida Morales 08/29/20 07:20 Reevaluation #2: 08/28/20 01:10 Patient able to walk with a steady gait. Vital signs stable. ED Medical Decision Making - Lab Data Result diagrams: 08/27/20 23:03 08/27/20 23:03 Vital Signs 08/27/20 08/27/20 22:48 22:50 Temperature 98.7 F Pulse Rate 92 H Respiratory 18 Rate Blood Pressure 124/80 [Left] O2 Sat by Pulse 97 Oximetry - EKG Data -: EKG Interpreted by Me EKG shows normal: sinus rhythm Rate: normal - EKG Data When compared to previous EKG there are: no significant change 08/27/20 23:09 EKG interpreted at 23: 01 Sinus rhythm, 74 bpm. Left axis deviation. Borderline left anterior fascicular block. Low voltage in the lateral leads. T wave inversion V2 and V3. Question juvenile T wave inversion. Abnormal EKG. Not a STEMI. Unchanged from prior from 09/05/2019 - Radiology Data Radiology results: pending, report reviewed, image reviewed Noncontrast CT scan of the brain negative for acute findings. Unchanged from prior examination. Critical care attestation.: If time is entered above; I have spent that time in minutes in the direct care of this critically ill patient, excluding procedure time. ED Disposition Clinical Impression: Convulsion Qualifiers: Convulsion type: unspecified Qualified Code(s): R56.9 - Unspecified convulsions Disposition: DC-01 TO HOME OR SELFCARE Is pt being admited?: No Does the pt Need Aspirin: No Condition: Good Instructions: Non-Epileptic Seizures, Adult Additional Instructions: Please do not drive or operate motor vehicles for the next 6 months. Please take the medication as directed, Keppra. Avoid consumption of alcohol, tobacco, smoke products and recreational drugs. Please follow-up with a primary care doctor, or neurologist, within the next 5 to 7 days. For the patient's convenience, a number of local providers have been listed. Please return to the emergency room right away with new pain, worsened pain, migration of pain, projectile vomiting, change in mental status, confusion, inability to tolerate liquid feeds, new, worsened or different symptoms not present on the initial emergency room evaluation. Prescriptions: levETIRAcetam [Keppra TAB] 500 mg PO BID #60 tablet Referrals: STEPHEN KAPOOR MD [Referring] - 3-5 Days NIKA MACKEY MD [Staff Physician] - 3-5 Days STANISLAW VALDIVIA MD [Staff Physician] - 3-5 Days
[2020-08-27 22:59] VITALS: BP 124/80
[2020-08-27] MEDS ORDERED: diphenhydrAMINE 50 MG/ML VIAL IV ONE (23:15)
[2020-08-27] MEDS ORDERED: LORazepam 2 MG/ML VIAL IV STA (23:15)
[2020-08-27 23:26] LABS: Hematocrit 34.4 % (30.3-42.9); Hemoglobin 11.2 gm/dl (10.1-14.3)
--- NOTE | 2020-08-28 00:01 | Cat Scan Report ---
CT head/brain wo con INDICATION / CLINICAL INFORMATION: Seizure. TECHNIQUE: Axial CT imaging of the brain was obtained without contrast. Coronal and sagittal reformatted imaging obtained and reviewed. All CT scans at this location are performed using CT dose reduction for ALAR A by means of automated exposure control. COMPARISON: Prior head CT, 09/04/2019 FINDINGS: CT brain without contrast does not demonstrate any intracranial hemorrhage, mass, or midline shift. N o extra-axial fluid collection or suggestion of acute territorial infarction. Ventricular system and basilar cisterns are unremarkable. Visualized paranasal sinuses and mastoid air cells are well aerated and clear. No calvarial abnormali ty of significance. IMPRESSION: 1. No acute intracranial abnormality. No interval change from prior exam. Signer Name: Promise Good MD Signed: 08/27/2020 11:56 PM Workstation Name: [id number]
[2020-08-28 00:19] LABS: Alanine Aminotransferase 7 units/L (7-56); Albumin 3.9 g/dL (3.9-5); BUN/Creatinine Ratio 9; Blood Urea Nitrogen 7 mg/dL (7-17); Calcium 8.1 mg/dL (8.4-10.2); Hemolysis Index 47
[2020-08-28] MEDS ORDERED: AMMONIA INHALANT IH ONE (00:55)
--- NOTE | 2020-08-29 10:38 | Electrocardiograph Report ---
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
== END 2020-08-28 03:00 | disposition home or self-care (01) ==
LOC: ED 22:43
DX: R56.9 Unspecified convulsions (principal); K21.9 Gastro-esophageal reflux disease without esophagitis; Z91.018 Allergy to other foods; Z79.899 Other long term (current) drug therapy
CPT/HCPCS: 36415; 70450; 80053; 82550; 83735; 84702; 85014; 85018; 85049; 93005; 99284; J1953; 80320; G0480

== ENCOUNTER 2020-11-21 17:46 | Emergency (ER) | payer MEDICARE | END 2020-11-21 19:00 | disposition left against medical advice (07) | LOC: ED 17:46 | DX: N92.0 Excessive and frequent menstruation with regular cycle (principal); Z53.21 Procedure and treatment not carried out due to patient leaving prior to being seen by health care provider ==

== ENCOUNTER 2021-02-28 23:06 | Emergency (ER) | payer MEDICARE ==
--- NOTE | 2021-02-28 23:27 | Emergency Department Report ---
ED General Adult HPI - General Chief complaint: Neuro Symptoms/Deficit Stated complaint: NOT FEELING WELL Time Seen by Provider: 02/28/21 23:25 Source: EMS Mode of arrival: Stretcher Limitations: No Limitations - History of Present Illness Initial comments: Patient was brought in by EMS for a somewhat convoluted history. They were called for possible seizure versus possible stroke. The mother stated that the patient had some facial swelling and seemed to be asymmetric and was concerned for stroke. The patient actually states that she has been having symptoms since Saturday. She states that she has felt off since Saturday. She has had an occipital headache. She states that she feels a warm feeling in the occiput and numbness in the occiput. This numbness radiates down both legs in the front. She has no pain or paresthesias in the posterior aspect of the legs. Arms are unaffected. She does state that when she moves her arms, this causes chest tightness. Patient states that he just feels off. There was no head trauma. She has had seizures before and feels as though she is going to have another seizure. She did not have a seizure as far as we are aware. She has never had a stroke. There is no history of recent head trauma. Again, the patient states that her last known normal time was actually Saturday. - Related Data Home Medications Medication Instructions Recorded Confirmed Last Taken Montelukast Sodium 5 mg PO QHS 09/05/19 09/05/19 Unknown Previous Rx's Medication Instructions Recorded Last Taken Type levETIRAcetam [Keppra TAB] 500 mg PO BID #60 tablet 08/28/20 Unknown Rx Butalb/Acetaminophen/Caffeine 1 cap PO Q6HR PRN #12 cap 03/01/21 Unknown Rx [Fioricet 50-300-40 mg CAP] Allergies Allergy/AdvReac Type Severity Reaction Status Date / Time banana Allergy Hives Verified 02/28/21 23:11 pineapple Allergy Unknown Verified 02/28/21 23:11 turkey Allergy Unknown Verified 02/28/21 23:11 ED Review of Systems ROS: Stated complaint: NOT FEELING WELL Other details as noted in HPI Comment: All other systems reviewed and negative Constitutional: denies: fever Eyes: denies: vision change ENT: denies: throat pain Respiratory: denies: cough Cardiovascular: as per HPI Endocrine: denies: unexplained weight loss Gastrointestinal: denies: abdominal pain Genitourinary: denies: urgency Musculoskeletal: denies: back pain Skin: denies: rash Neurological: as per HPI Hematological/Lymphatic: denies: easy bruising ED Past Medical Hx - Past Medical History Hx Hypertension: No Hx Congestive Heart Failure: No Hx Diabetes: No Hx Deep Vein Thrombosis: No Hx GERD: Yes Hx Liver Disease: No Hx Renal Disease: No Hx Sickle Cell Disease: No Hx Seizures: Yes (age 6 fever related none since) Hx Asthma: No Hx COPD: No Hx HIV: No Additional medical history: FEBRILE SEIZURE - Surgical History Additional Surgical History: right eye surgery - Family History Family history: hypertension - Social History Smoking Status: Unknown if ever smoked - Medications Home Medications: Home Medications Medication Instructions Recorded Confirmed Last Taken Type Montelukast Sodium 5 mg PO QHS 09/05/19 09/05/19 Unknown History levETIRAcetam [Keppra TAB] 500 mg PO BID #60 tablet 08/28/20 Unknown Rx Butalb/Acetaminophen/Caffeine 1 cap PO Q6HR PRN #12 cap 03/01/21 Unknown Rx [Fioricet 50-300-40 mg CAP] ED Physical Exam - General Limitations: No Limitations, Physical Limitation (Poor historian), Other (Pulse ox noted and normal) General appearance: alert, in no apparent distress, obese - Head Head exam: Present: atraumatic, normocephalic, normal inspection - Eye Eye exam: Present: normal appearance, EOMI. Absent: scleral icterus - ENT ENT exam: Present: mucous membranes moist, normal external ear exam - Neck Neck exam: Present: normal inspection. Absent: meningismus - Respiratory Respiratory exam: Present: normal lung sounds bilaterally. Absent: respiratory distress - Cardiovascular Cardiovascular Exam: Present: regular rate, normal rhythm - GI/Abdominal GI/Abdominal exam: Present: soft. Absent: distended - Extremities Exam Extremities exam: Present: normal capillary refill - Back Exam Back exam: Absent: CVA tenderness (R), CVA tenderness (L) - Neurological Exam Neurological exam: Present: alert, oriented X3, CN II-XII intact, normal gait, reflexes normal, other (No pronator drift or dysdiadochokinesia.). Absent: motor sensory deficit - Psychiatric Psychiatric exam: Present: normal mood, flat affect - Skin Skin exam: Present: warm, dry ED Course Vital Signs 02/28/21 03/01/21 23:11 04:05 Temperature 98.9 F Pulse Rate 65 56 L Respiratory 16 16 Rate Blood Pressure 120/78 116/70 [Left] O2 Sat by Pulse 98 100 Oximetry - Reevaluation(s) Reevaluation #1: 02/28/21 23:02 EMS was met in the hallway. Labs were ordered. Old records reviewed. Reevaluation #2: 03/01/21 05:49 Work-up was complete and the patient was discharged. ED Medical Decision Making - Lab Data Result diagrams: 03/01/21 00:17 03/01/21 01:33 Rhythm strip: Normal sinus rhythm without ectopy per monitor observe 10 seconds. - Radiology Data Radiology results: report reviewed - Medical Decision Making Patient presented by EMS for possible stroke versus seizure versus other patho logy. She certainly did not have symptoms that would suggest stroke. She had an occipital headache with bilateral paresthesias. That would not be consistent with stroke considering it was bilateral. She did report having some tightness in her chest only as she raised her arms. This was clearly not exertional or cardiac in nature. Patient was not found to have any profound electrolyte derangement or infectious pathology. She was treated symptomatically and subsequently discharged. Her headache was occipital in nature. It was not thunderclap in nature. It was not maximum intensity at the time of onset. I am not concerned for subarachnoid hemorrhage. Critical Care Time: No Critical care attestation.: If time is entered above; I have spent that time in minutes in the direct care of this critically ill patient, excluding procedure time. ED Disposition Clinical Impression: Paresthesias Acute headache Qualifiers: Headache type: tension-type Intractability: not intractable Qualified Code(s): G44.209 - Tension-type headache, unspecified, not intractable Disposition: 01 HOME / SELF CARE / HOMELESS Is pt being admited?: No Condition: Stable Instructions: Paresthesia, General Headache Without Cause, [id number] Additional Instructions: Drink plenty water. Return for problems. Follow-up with your regular doctor for recheck and further management. Take regular medications at home. Use ibuprofen as needed. Prescriptions: Butalb/Acetaminophen/Caffeine [Fioricet 50-300-40 mg CAP] 1 cap PO Q6HR PRN #12 cap PRN Reason: Headache Referrals: AL MCMANUS MD [Primary Care Provider] - 3-5 Days
[2021-02-28] MEDS ORDERED: KETOROLAC 30 MG/1 ML INJ IV ONE (23:28)
[2021-02-28] MEDS ORDERED: SODIUM CHLORIDE 0.9% 1000 ML 1,000 ML IV ONE (23:28)
--- NOTE | 2021-03-01 00:14 | Cat Scan Report ---
CT head/brain wo con INDICATION / CLINICAL INFORMATION: 36 years Female; Seizure, now with an occipital headache, paresthesias. TECHNIQUE: Routine CT head without contrast. All CT scans at this location are performed using CT dos e reduction for ALARA by means of automated exposure control. COMPARISON: 08/27/2020 FINDINGS: BRAIN / INTRACRANIAL CONTENTS: No acute hemorrhage, mass effect, midline shift, hydrocephalus, or acu te, large territorial infarct. No signs of significant atrophy or chronic infarct. No significant whi te matter abnormality seen. CRANIOCERVICAL JUNCTION: No significant abnormality. ORBITS: No significant abnormality of visualized orbits. SINUSES / MASTOIDS: Visualized paranasal sinuses and mastoid air cells are essentially clear. ADDITIONAL FINDINGS: None. IMPRESSION: 1. No focal mass, hemorrhage, hydrocephalus, or acute, large territorial infarct. Signer Name: Naun Campbell MD, III Signed: 03/01/2021 12:10 AM Workstation Name: [id number]
[2021-03-01 00:33] LABS: Hematocrit 37.4 % (30.3-42.9); Hemoglobin 11.5 gm/dl (10.1-14.3); Mean Corpuscular HGB Conc 31 % (30-34); Mean Corpuscular Volume 78 fl (79-97); Platelet Count 313 K/mm3 (140-440); Red Blood Count 4.81 M/mm3 (3.65-5.03); Red Cell Distribution Width 19.1 % (13.2-15.2)
[2021-03-01 00:49] LABS: Hemolysis Index 527
[2021-03-01 01:29] LABS: Blood Urea Nitrogen TNR mg/dL (7-17)
[2021-03-01 01:30] LABS: BUN/Creatinine Ratio TNR; Calcium TNR mg/dL (8.4-10.2)
[2021-03-01 02:02] LABS: Blood Urea Nitrogen 5 mg/dL (7-17); Calcium 8.2 mg/dL (8.4-10.2); Hemolysis Index 12
[2021-03-01 02:03] LABS: BUN/Creatinine Ratio 7
[2021-03-01 04:33] VITALS: BP 116/70
== END 2021-03-01 05:30 | disposition home or self-care (01) ==
LOC: ED 23:06
DX: R20.2 Paresthesia of skin (principal); G44.209 Tension-type headache, unspecified, not intractable
CPT/HCPCS: 36415; 70450; 80048; 83735; 85027; 96361; 96374; 99284; J1885; J7030; Q0162